=== PATIENT | male | born 1985 | race Caucasian/White ===

== ENCOUNTER 2018-06-24 07:19 | Day surgery (SDC) | payer OTHER ==
[~2018-06-24 07:19] MED LIST: BUPIVACAINE 0.5% PF 30 ML VIAL ONE
--- NOTE | 2018-06-24 07:38 | ANESTHESIA ---
Pre-Anesthesia VS, & Labs - Diagnosis Recurrent right inguinal hernia, left groin pain - Procedure Open inguinal hernia repair, right groin injection - NPO >8 hours Home Medications and Allergies Home Medications: Ambulatory Orders No Known Home Medications 06/24/18 Allergies/Adverse Reactions: Allergies Allergy/AdvReac Type Severity Reaction Status Date / Time No Known Drug Allergies Allergy Verified 06/24/18 08:27 Anes History & Medical History - Anesthetic History Anesthesia Complications: reports: No previous complications Family history of Anesthesia Complications: Denies Family history of Malignant Hyperthermia: Denies - Medical History Cardiovascular: reports: None Pulmonary: reports: None Gastrointestinal: reports: None Urinary: reports: None Neuro: reports: None Musculoskeletal: reports: None Endocrine/Autoimmune: reports: None Blood Disorders: reports: None Skin: reports: None Smoking Status: Never smoker Psychosocial: reports: No issues indicated - Surgical History General: Other (Inguinal hernia repair) Exam General: Alert Dental: WNL Mouth Opening: Greater than 4 Fingerbreadths Neck Mobility: Normal Mallampati classification: II Thyromental Distance: greater than 6 cm Respiratory: Lungs clear Cardiovascular: Regular rate Mental/Cognitive Status: Alert/Oriented X3 Cognitive Status: Within normal limits Plan Anesthesia Type: General Consent for Procedure(s) Verified and Reviewed: Yes Code Status: Attempt Resuscitation ASA classification: 1-Healthy patient Is this case an emergency?: No
[2018-06-24] MEDS ORDERED: ceFAZolin 2 GM/50 ML 2 GM/50 ML BAG IV ONE (07:50)
[2018-06-24] MEDS ORDERED: LACTATED RINGERS 1,000 ML IV ONE ×2 (08:25→10:10)
[2018-06-24] MEDS ORDERED: BUPIVACAINE 0.25% PF 30 ML VIAL ONE (08:51)
[2018-06-24] MEDS ORDERED: BUPIVACAINE 0.25% PF 30 ML VIAL SUBQ ONE (09:26)
[2018-06-24] MEDS ORDERED: HYDROcod/ACETAM 5/325 MG TABLET PO PRN (10:03)
[2018-06-24] MEDS ORDERED: HYDROmorphone 0.5 MG/0.5 ML SYRINGE IVP PRN (10:03)
[2018-06-24] MEDS ORDERED: ONDANSETRON 4 MG/2 ML VIAL IVP PRN (10:03)
--- NOTE | 2018-06-24 10:09 | OPERATIVE REPORT ---
Operative Report - General Procedure Date: 06/24/18 Planned Procedure: Recurrent right inguinal herniorrhaphy and left inguinal nerve block Pre-Op Diagnosis: Recurrent right inguinal hernia, postoperative pain following left inguinal Procedure Performed: Recurrent right indirect inguinal herniorrhaphy with mesh Left ilioinguinal, iliohypogastric, and genitofemoral nerve block Post Op Diagnosis: Same - Procedure Note Primary Surgeon: Ric Petersen MD Anesthesia Provider: Marta Hilario CRNA Anesthesia Technique: General ET tube, Local (60 mL of 1/4% Marcaine) IV Fluids (mL): 700 Estimated Blood Loss (mL): 5 Drain/Tube Type: Other (None.) Complications: None. - Other Other Information/Narrative: OPERATIVE DESCRIPTION/REPORT: After verbal and written informed consent was obtained detailing the risks of infection, bleeding requiring transfusion with its risks, nerve injury, and , and after I met with the patient confirming the surgery and the site of the surgery and after initialing the site of the surgery with a surgical marker, the patient was brought to the operative suite and placed supine on the operating table. Great care was taken to avoid pressure points to prevent pressure necrosis or nerve injury. Monitoring devices were applied along with TEDs and pneumatic compressive stockings (to prevent DVT). The patient received preoperative antibiotics for surgical prophylaxis. Marta Hilario CRNA sedated and anesthetized the patient for the entire procedure. The patient was prepped and draped in the usual sterile manner. With the patient draped my initials were clearly visible. A "time in" then confirmed that the patient was identified with 3 identifiers (name, date and medical record number), the history and physical was in the chart, the signed consent confirming the procedure was in the chart, the patient was in the correct position, the aforementioned prophylactic measures were in place or given, we had the correct personnel and equipment to complete the procedure and that anesthesia, surgery and nursing were given an opportunity to express any concerns. With the agreement of everyone in the room, we proceeded with the operation. The left-hand side was measured and marked with lines drawn between the anterior superior iliac spine and the umbilicus as well as the anterior superior iliac spine and the pubis. These were used as guidance for injections of the left ilioinguinal, left iliohypogastric, and left genitofemoral nerves. A total of 30 mL of 1/4% Marcaine was used. There was no bleeding. A standard inguinal incision was made on the right and dissection was carried down to the external oblique aponeurosis using a combination of Metzenbaum scissors and Bovie electrocautery. The external oblique aponeurosis was cleared of overlying adherent tissue, and the external ring was delineated. The external oblique was the incised with a scalpel and this incision was carried out to the external ring using Metzenbaum scissors. Having exposed the inguinal canal, the cord structures were from the canal using blunt dissection, and a Rebecca drain was placed around the cord structures at the level of the pubic tubercle. This [place] drain was then used to retract the cord structures as needed. Adherent cremasteric muscle was dissected free from the cord using Bovie electrocautery. The cord was then explored using a combination of sharp and blunt dissection, and the sac was found anteromedially to the cord structures. The sac was dissected free from the cord structures using a combination of blunt dissection and Bovie electrocautery. Once preperitoneal fat was encountered, the dissection stopped and the sac was high ligated with a 2-0 PDS, transected, the stump cauterized and allowed to retract back into the abdominal cavity and a medium Covidien plug (Ref# [id number], Lot#[id number], use date 2023-03-09) inserted into the internal ring. The plug was secured to the internal ring by interrup humble 2-0 PDS sutures. The Covidien enlay patch was then placed on the floor of the inguinal canal and secured in place using interrupted 0 PDS sutures to the pubic tubercle medially. By reinforcing the floor with the enlay patch, a new internal ring was thus formed. The Rebecca drain was removed. The wound was then irrigated using sterile saline, and hemostasis was obtained using Bovie electrocautery. The incision in the external oblique was approximated using a 3-0 Vicryl in a running fashion, thus reforming the external ring. The fascia and skin was then injected with the 1/2% marcaine for termination clerk pain control. The skin incision was approximated with 4-0 Monocryl in a subcuticular fashion. The skin was prepped with benzoin and steristrips were applied. At this point a time out was performed that confirmed that all the counts were correct, the procedure that was performed, the blood loss, the IV fluids administered, and the patients condition. A dressing was then applied. Gentle downward traction ensured that the testes were well seated in the scrotum. Having tolerated the procedure well, the patient was taken to short stay in good and stable condition. Dragon disclaimer: This document was created in part using voice recognition technology. Because of the inherent limitations of the system ([employer]'s Dragon Dictate user manual states that the licensee understands that speech recognition is a statistical process and that recognition errors are inherent in the process), occasional same sounding word substitutions and grammatical errors do occur and persist despite proofreading. Please read this document for context.
[2018-06-24] MEDS ORDERED: HYDROcod/ACETAM 5/325 MG TABLET ONE (11:18)
[2018-06-24 11:57] VITALS: BP 120/74
== END 2018-06-24 07:20 | disposition home or self-care (01) ==
LOC: SDS 07:19
PROVIDERS: ATTEND Surgery
PROC: 0YU60JZ Supplement Left Inguinal Region with Synthetic Substitute, Open Approach (ICD-10-PCS; principal; 2018-06-24 09:00)
DX: K40.91 Unilateral inguinal hernia, without obstruction or gangrene, recurrent (principal)
CPT/HCPCS: 49520; A9270; J0690; J7120

== ENCOUNTER 2018-06-26 20:59 | Emergency (ER) | payer OTHER ==
[2018-06-26] MEDS ORDERED: SODIUM CHLORIDE 0.9% 1,000 ML IV ONE (21:36)
[2018-06-26] MEDS ORDERED: ONDANSETRON 4 MG/2 ML VIAL IVP STA (21:36)
[2018-06-26] MEDS ORDERED: MORPHINE 2 MG/ML CARPUJECT IVP STA (21:36)
[2018-06-26] MEDS ORDERED: IOVERSOL 320 100 ML VIAL IVP ONE ×2 (21:47→22:28)
[2018-06-26 21:59] LABS: BASOPHILS # (AUTO) 0.1 10^3/uL (0.0-0.1); BASOPHILS % (AUTO) 0.8 %; EOSINOPHILS # (AUTO) 0.2 10^3/uL (0.0-0.7); EOSINOPHILS % (AUTO) 2.2 %; HGB - HEMOGLOBIN 15.8 g/dL (14.0-18.0); LYMPHOCYTES # (AUTO) 2.2 10^3/uL (1.5-3.5); LYMPHOCYTES % (AUTO) 31.6 %; MEAN CORPUSCULAR HEMOGLOBIN 29.7 pg (27.0-31.0); MEAN CORPUSCULAR HGB CONC 33.7 g/dL (32.0-36.0); MEAN CORPUSCULAR VOLUME 88.2 fL (80.0-94.0); MEAN PLATELET VOLUME 8.1 fL (7.4-11.4); MONOCYTES # (AUTO) 0.7 10^3/uL (0.0-1.0); MONOCYTES % (AUTO) 10.6 %; NEUTROPHILS # (AUTO) 3.8 10^3/uL (1.5-6.6); NEUTROPHILS % (AUTO) 54.8 %; PLT - PLATELET COUNT 257 10^3/uL (130-450); RED CELL DISTRIBUTION WIDTH 11.7 % (12.0-15.0)
--- NOTE | 2018-06-26 22:07 | ED Physician Documentation ---
PD HPI ABD PAIN - Stated complaint Stated Complaint: SIDE PX/POST HERNIA SURG - Chief complaint Chief Complaint: Abd Pain - History obtained from History obtained from: Patient - History of Present Illness Timing - onset: How many hours ago (6) Timing - duration: Hours (6) Timing - details: Gradual onset Pain level max: 6 Pain level now: 6 Severity Comments: moderate Quality: Aching Location: RUQ Radiation: Right flank Improved by: Laying still Worsened by: Moving Associated symptoms: No: Fever, Nausea, Vomiting - Additional information Additional information: Patient 2 days status post right inguinal hernia repair. Patient reports new onset of right flank and abdominal pain today. Review of Systems Ten Systems: 10 systems reviewed and negative Constitutional: reports: Reviewed and negative Eyes: reports: Reviewed and negative Ears: reports: Reviewed and negative Nose: reports: Reviewed and negative Throat: reports: Reviewed and negative Cardiac: reports: Reviewed and negative Respiratory: reports: Reviewed and negative GI: reports: Reviewed and negative : reports: Reviewed and negative Skin: reports: Reviewed and negative Musculoskeletal: reports: Reviewed and negative Neurologic: reports: Reviewed and negative Psychiatric: reports: Reviewed and negative Endocrine: reports: Reviewed and negative Immunocompromised: reports: Reviewed and negative PD PAST MEDICAL HISTORY - Past Medical History Cardiovascular: None Respiratory: None Neuro: None Endocrine/Autoimmune: None GI: None : None HEENT: None Psych: None Musculoskeletal: None Derm: None - Past Surgical History Past Surgical History: Yes General: Hiatal hernia repair, Other - Present Medications Home Medications: Ambulatory Orders Medication Instructions Recorded Confirmed No Known Home Medications 06/24/18 06/24/18 - Allergies Allergies/Adverse Reactions: Allergies Allergy/AdvReac Type Severity Reaction Status Date / Time No Known Drug Allergies Allergy Verified 06/26/18 21:07 - Living Situation Living Situation: reports: With spouse/s.o. Living Arrangement: reports: At home - Social History Does the pt smoke?: No Smoking Status: Never smoker Does the pt drink ETOH?: Yes Does the pt have substance abuse?: No - Family History Family history: reports: Other (Reviewed and not pertinent) - Immunizations Immunizations are current?: Yes - POLST Patient has POLST: No PD ED PE NORMAL - Vitals Vital signs reviewed: Yes - General General: Alert and oriented X 3, No acute distress - HEENT HEENT: PERRL - Neck Neck: Supple, no meningeal sign - Cardiac Cardiac: RRR, No murmur - Respiratory Respiratory: Clear bilaterally - Abdomen Abdomen: Normal bowel sounds, Soft, Non distended, Other (Right-sided tenderness with no guarding or rebound.) - Derm Derm: Warm and dry - Extremities Extremities: No deformity - Neuro Neuro: Alert and oriented X 3 - Psych Psych: Normal mood, Normal affect Results - Vitals Vitals: Vital Signs - 24 hr 06/26/18 06/26/18 21:04 23:19 Temperature 36.3 C L 36.7 C Heart Rate 71 88 Respiratory 18 18 Rate Blood Pressure 136/86 H 132/85 H O2 Saturation 98 99 Oxygen O2 Source Room air - Labs Labs: Laboratory Tests 06/26/18 06/26/18 06/26/18 21:45 21:45 21:45 WBC 7.0 RBC 5.30 Hgb 15.8 Hct 46.7 MCV 88.2 MCH 29.7 MCHC 33.7 RDW 11.7 L Plt Count 257 MPV 8.1 Neut # (Auto) 3.8 Lymph # (Auto) 2.2 Bowman # (Auto) 0.7 Eos # (Auto) 0.2 Baso # (Auto) 0.1 Absolute Nucleated RBC 0.01 Nucleated RBC % 0.1 Sodium 140 Potassium 3.5 Chloride 102 Carbon Dioxide 29 Anion Gap 9.0 BUN 16 Creatinine 0.8 Estimated GFR (MDRD) 114 Glucose 108 H Lactic Acid 1.0 Calcium 8.9 Total Bilirubin 0.5 AST 19 ALT 14 Alkaline Phosphatase 51 Total Protein 7.5 Albumin 4.0 Globulin 3.5 Albumin/Globulin Ratio 1.1 Lipase 51 - Rads (name of study) CT Abd Radiology: Final report received (WNL) PD MEDICAL DECISION MAKING - ED course Complexity details: reviewed old records, reviewed results, re-evaluated patient, considered differential, d/w patient, d/w family ED course: 32-year-old male status post right inguinal hernia repair presents with right- sided abdominal pain. CT scan unremarkable for acute abnormality. Labs unremarkable. Patient discharged with pain medications. Departure - Departure Disposition: 01 Home, Self Care Clinical Impression: Abdominal pain Qualifiers: Abdominal location: right upper quadrant Qualified Code(s): R10.11 - Right up per quadrant pain Condition: Good Instructions: Abdominal Pain Follow-Up: Deja Matos MD [Primary Care Provider] - Comments: You may take up to a total of 3000 mg of acetaminophen daily including what you take with your [place]. You may also take 600 mg ibuprofen as often as 4 times per day. Follow-up with surgeon as scheduled. Return with worsening symptoms. Discharge Date/Time: 06/26/18 23:33
[2018-06-26 22:15] LABS: ALBUMIN/GLOBULIN RATIO 1.1 (1.0-2.2); BILIRUBIN,TOTAL 0.5 mg/dL (0.2-1.0); CALCIUM 8.9 mg/dL (8.5-10.3); CREATININE 0.8 mg/dL (0.6-1.2); TOTAL PROTEIN 7.5 g/dL (6.7-8.2)
--- NOTE | 2018-06-26 22:48 | CT Report ---
Reason: R flank pain, post op Procedure Date: 06/26/2018 Accession Number: [id number] / [id number] Procedure: CT - Abdomen/Pelvis W/ CPT Code: FULL RESULT: EXAM: CT ABDOMEN AND PELVIS EXAM DATE: 06/26/2018 10:32 PM. CLINICAL HISTORY: R flank pain, post op. COMPARISONS: None. TECHNIQUE: Routine helical CT imaging was performed through the abdomen and pelvis. IV contrast: [id number] 90ml. Enteric contrast: No. Reconstructions: Coronal and sagittal. In accordance with CT protocol optimization, one or more of the following dose reduction techniques were utilized for this exam: automated exposure control, adjustment of mA and/or KV based on patient size, or use of iterative reconstructive technique. FINDINGS: Lung Bases: Unremarkable. Liver: Normal. No masses. Gallbladder/Bile Ducts: Unremarkable. Spleen: Normal. Pancreas: Normal. Adrenal Glands: Normal. Kidneys: Normal. No masses or hydronephrosis. Peritoneal Cavity/Bowel: Normal. No free fluid, free air or adenopathy. No masses or acute inflammatory process. The appendix is not confidently identified, but no pericecal inflammation or abnormal fluid collection is seen to suggest acute appendicitis. Pelvic Organs: Normal. The bladder and visualized pelvic organs are within normal limits. Vasculature: No aneurysms or other significant abnormality. Bones: No significant abnormality. Other: Postoperative changes in the right inguinal canal. No evidence of abscess. Subcutaneous gas in the right lateral soft tissues. IMPRESSION: Postoperative changes in the right inguinal canal. No evidence of nephrolithiasis or hydronephrosis. No evident etiology for patient's right flank pain. RADIA
[2018-06-26] MEDS ORDERED: ACETAMINOPHEN 500 MG TABLET PO STA (23:01)
[2018-06-26 23:20] VITALS: BP 132/85
== END 2018-06-26 23:33 | disposition home or self-care (01) ==
LOC: ED 20:59
DX: R10.11 Right upper quadrant pain (principal)
CPT/HCPCS: 36415; 74177; 80053; 83605; 83690; 85025; 96361; 96374; 96375; 99283; A9270; Q9967

== ENCOUNTER 2020-11-11 11:49 | Outpatient (CLI) | payer OTHER | END 2020-11-11 11:50 | disposition EMS.NT | LOC: EMS 11:49 | DX: Z04.3 Encounter for examination and observation following other accident (principal); R51.9 Headache, unspecified; M54.2 Cervicalgia; M54.6 Pain in thoracic spine ==

== ENCOUNTER 2020-11-11 12:52 | Emergency (ER) | payer OTHER ==
--- OUTSIDE RECORDS SUMMARY | 2020-11-11 13:13 | EXTERNAL MEDICAL SUMMARY RPT | Continuity of Care Document ---
:1985 Demographics Phone Unavailable Preferred Language Unknown Marital Status Unknown Judaism Affiliation Unknown Race Unknown Ethnic Group Unknown Author Organization [facility] Address [address] [place] [address] Phone Allergies Encounters Medications Problems Results
--- NOTE | 2020-11-11 13:43 | CT Report ---
PROCEDURE: HEAD WO INDICATIONS: fall from standing, possible LOC TECHNIQUE: Noncontrast 4.5 mm thick angled axial sections acquired from the foramen magnum to the vertex. For r adiation dose reduction, the following was used: automated exposure control, adjustment of mA and/or kV according to patient size. COMPARISON: None. FINDINGS: Image quality: Excellent. CSF spaces: Basal cisterns are patent. No extra-axial fluid collections. Ventricles are normal in size and shape. Brain: No midline shift. No intracranial masses or hemorrhage. Styles-white matter interface is norm al. Skull and face: Calvarium and visualized facial bones are intact, without suspicious lesions. Sinuses: Small left maxillary sinus mucus retention cyst. Visualized sinuses and mastoids are otherw ise clear. IMPRESSION: 1. No evidence of acute stroke, hemorrhage, or mass. 2. No evidence of significant intracranial sequelae of acute trauma. Reviewed by: Bakari Baron MD on 11/11/2020 1:42 PM PDT Approved by: Bakari Baron MD on 11/11/2020 1:42 PM PDT Station ID: [id number]
--- NOTE | 2020-11-11 13:48 | CT Report ---
PROCEDURE: CERVICAL SPINE WO INDICATIONS: midline pain s/p fall TECHNIQUE: Noncontrast 3 mm thick sections acquired from the skull base to the T4 level. Sagittal and coronal r eformats were then constructed. For radiation dose reduction, the following was used: automated exp osure control, adjustment of mA and/or kV according to patient size. COMPARISON: None. FINDINGS: Image quality: Excellent. Bones: No fractures or dislocations. Visualized superior ribs are intact. Soft tissues: Prevertebral soft tissues are normal in thickness. No paravertebral hematomas. No ap ical pneumothoraces. 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 IMPRESSION: 1. No evidence of acute cervical fracture or dislocation. 2. 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 Reviewed by: Bakari Baron MD on 11/11/2020 1:47 PM PDT Approved by: Bakari Baron MD on 11/11/2020 1:47 PM PDT Station ID: [id number]
[2020-11-11] MEDS ORDERED: KETOROLAC 60 MG/2 ML VIAL IM STA (13:58)
--- NOTE | 2020-11-11 13:58 | ED Physician Documentation ---
History of Present Illness - Stated complaint Stated Complaint: GLF - Chief complaint Chief Complaint: Trauma Hd/Nk - History obtained from History obtained from: Patient - Additonal information Additional information: 35-year-old man, on no meds besides amytriptaline, p/w Fall backwards onto his head while at work with possible LOC. Patient states that he was getting physical therapy in the [place] and was throwing a fit Frisbee [id number] and was walking backwards when he stumbled, falling backwards and hitting his occiput and seeing bright white lights. He does not think that he passed out but is unsure. Endorses severe occipital bilateral head pain that is nonradiating as well as severe midline and bilateral neck pain radiating up to the base of the skull. Denies other injury. Review of Systems Musculoskeletal: reports: Neck pain Neurologic: reports: Head injury PD PAST MEDICAL HISTORY - Past Medical History Past Medical History: Yes Cardiovascular: None Respiratory: None Neuro: None Endocrine/Autoimmune: None GI: Hiatal hernia : None HEENT: None Psych: None Musculoskeletal: None Derm: None - Past Surgical History Past Surgical History: Yes General: Hiatal hernia repair, Other - Present Medications Home Medications: Ambulatory Orders Medication Instructions Recorded Confirmed Amitriptyline [Elavil] 10 mg PO DAILY 11/11/20 11/11/20 - Allergies Allergies/Adverse Reactions: Allergies Allergy/AdvReac Type Severity Reaction Status Date / Time No Known Drug Allergies Allergy Verified 11/11/20 12:59 - Social History Does the pt smoke?: No Smoking Status: Never smoker Does the pt drink ETOH?: Yes Does the pt have substance abuse?: No - Immunizations Immunizations are current?: Yes - POLST Patient has POLST: No PD ED PE NORMAL - Vitals Vital signs reviewed: Yes - General General: Alert and oriented X 3, No acute distress, Well developed/nourished - HEENT HEENT: Atraumatic, PERRL, EOMI - Neck Neck: Supple, no meningeal sign, Other (midline cervical ttp as well as BL muscle ttp along neck) - Cardiac Cardiac: RRR - Respiratory Respiratory: No respiratory distress, Clear bilaterally - Abdomen Abdomen: Non tender, Non distended, Other (pelvis stable. chest wall nontender) - Back Back: No spinal TTP - Derm Derm: Normal color, Warm and dry - Extremities Extremities: No deformity, Normal ROM s pain - Neuro Neuro: Alert and oriented X 3 - Psych Psych: Normal mood, Normal affect Results - Vitals Vitals: Vital Signs - 24 hr 11/11/20 12:57 Temperature 37.2 C Heart Rate 87 Respiratory 16 Rate Blood Pressure 131/93 H O2 Saturation 97 Oxygen O2 Source Room air PD MEDICAL DECISION MAKING - ED course ED course: 35-year-old man presented with low mechanism fall from standing with head trauma and possible LOC. Head CT and cervical spine CT were normal. C-spine cleared. Conservative measures discussed with the patient. He will follow up with [facility]. Return precautions given. Departure - Departure Disposition: 01 Home, Self Care Clinical Impression: Neck muscle spasm, Fall from standing, Headache Condition: Good Instructions: ED Spasm Neck No Injury, Falls Job Prevent Comments: You are seen in the emergency department for evaluation after hitting your head. Your head CT and cervical spine CT were normal. Please take ibuprofen 600 mg every 6 hours as needed for pain, apply ice for 20 minutes every hour, do gentle stretching exercises, and get lots of rest. Return the emergency department for experience any new or worsening symptoms or have other concerns
[2020-11-11 14:48] VITALS: BP 113/86
== END 2020-11-11 14:48 | disposition home or self-care (01) ==
LOC: EDUNIT# → ED 12:52
DX: S09.90XA Unspecified injury of head, initial encounter (principal); R51.9 Headache, unspecified; M62.838 Other muscle spasm; W01.0XXA Fall on same level from slipping, tripping and stumbling without subsequent striking against object, initial encounter; Y93.02 Activity, running; Y99.0 Civilian activity done for income or pay
CPT/HCPCS: 96372; 99283; 99284